=== PATIENT | female | born 1965 | race Caucasian/White ===

== ENCOUNTER 2022-01-19 18:21 | Observation (INO) ==
[2022-01-20] MEDS ORDERED: Naloxone 0.4 MG/ML INJ IVP PRN ×2 (00:55→09:31)
[2022-01-20] MEDS ORDERED: Melatonin 3 MG TABLET PO PRN ×2 (00:55→09:31)
[2022-01-20] MEDS ORDERED: 0.9 % Sodium Chloride 1,000 ML IVC SCH ×3 (01:45→09:31)
[2022-01-20] MEDS: Pantoprazole 40 MG VIAL IVP SCH ×2 (02:38→07:22)
[2022-01-20 02:48] LABS: Basophils % 0.3 %; Eosinophils # 0.1 K/mcL (0.0-0.6); Eosinophils % 0.8 %; Hematocrit 34.1 % (35.3-44.9); Hemoglobin 11.7 g/dL (11.5-15.4); Immature Granulocytes % 0.5 % (0-4); Lymphocytes # 1.8 K/mcL (0.6-4.6); Lymphocytes % 15.2 %; Mean Corpuscular HGB Conc 34.3 g/dL (31.6-35.5); Mean Corpuscular Hemoglobin 30.5 pg (28.0-33.3); Mean Corpuscular Volume 88.8 fL (83.0-100.0); Monocytes # 0.9 K/mcL (0.0-1.3); Monocytes % 7.8 %; Platelet Count 184 K/mcL (140-400); Red Blood Count 3.84 M/mcL (3.82-4.97); Red Cell Distribution Width 13.3 % (11.5-14.5); Segmented Neutrophils % 75.4 %; White Blood Count 11.9 K/mcL (4.3-11.1)
[2022-01-20 02:54] LABS: INR 1.1; Prothrombin Time 12.4 Seconds (9.4-12.1)
[2022-01-20 02:58] LABS: Magnesium 2.2 mg/dL (1.6-2.6); Phosphorous 2.4 mg/dL (2.7-4.5)
[2022-01-20 02:59] LABS: Calcium 8.6 mg/dL (8.6-10.3); Potassium 3.9 mEq/L (3.5-5.1)
[2022-01-20] MEDS ORDERED: *HR* FentaNYL (PF) 100 MCG/2 ML VIAL ONE (07:27)
[2022-01-20] MEDS ORDERED: *HR* Midazolam HCl 2 MG/2 ML VIAL ONE (07:27)
[2022-01-20] MEDS ORDERED: Ondansetron 4 MG/2 ML VIAL ONE (07:27)
[2022-01-20] MEDS ORDERED: *HR* Propofol 200 MG/20 ML VIAL IVP ONE (07:27)
[2022-01-20] MEDS ORDERED: Lidocaine -MPF 2% 5 ML VIAL ONE (07:27)
[2022-01-20] MEDS ORDERED: Ketorolac 30 MG/ML VIAL ONE (07:27)
[2022-01-20] MEDS ORDERED: *HR* HYDROcodone/Acet 7.5/325 mg TABLET PO PRN (07:35)
[2022-01-20] MEDS ORDERED: Ondansetron 4 MG/2 ML VIAL IVP PRN ×2 (07:35→09:31)
[2022-01-20] MEDS ORDERED: *HR* FentaNYL (PF) 100 MCG/2 ML VIAL IVP PRN (07:35)
[2022-01-20] MEDS ORDERED: Ringers Solution, Lactated 1,000 ML ONE (08:43)
[2022-01-20] MEDS ORDERED: cefTRIAXone 1,000 MG in 0.9 % Sodium Chloride 10 ML IVP SCH (09:00)
[2022-01-20] MEDS: cefTRIAXone 1,000 MG in 0.9 % Sodium Chloride 10 ML IVP SCH (11:02)
[2022-01-20 11:32] LABS: Bacteria,Urine Few per hpf (None-Few); Bilirubin,Urine Negative (Negative); Blood,Urine Large (Negative); Clarity,Urine Turbid (Clear); Color,Urine Yellow (Yellow); Glucose,Urine (UA) Normal (Normal); Ketones,Urine 20 mg/dL (Negative); Leukocyte Esterase,Urine Large (Negative); Nitrite,Urine Negative (Negative); PH,Urine 6.5 pH Units (5.0-8.0); Protein,Urine Trace mg/dL (Neg-Trace); Specific Gravity,Urine 1.009 (1.010-1.025); WBC,Urine TNTC per hpf (0-3)
[2022-01-20] MEDS: *HR* Heparin 5,000 UNIT/ML VIAL SQ SCH (17:59)
[2022-01-21 01:19] LABS: Basophils % 0.1 %; Hematocrit 30.8 % (35.3-44.9); Hemoglobin 10.5 g/dL (11.5-15.4); Immature Granulocytes % 0.7 % (0-4); Lymphocytes % 13.5 %; Mean Corpuscular HGB Conc 34.1 g/dL (31.6-35.5); Mean Corpuscular Hemoglobin 30.3 pg (28.0-33.3); Monocytes % 5.8 %; Platelet Count 201 K/mcL (140-400); Red Blood Count 3.46 M/mcL (3.82-4.97); Red Cell Distribution Width 13.2 % (11.5-14.5); Segmented Neutrophils % 79.9 %
[2022-01-21 01:20] LABS: Lymphocytes # 1.6 K/mcL (0.6-4.6); Monocytes # 0.7 K/mcL (0.0-1.3); Neutrophils # 9.6 K/mcL (1.6-8.9)
[2022-01-21 01:35] LABS: BUN/Creatinine Ratio 25 (6-26); Blood Urea Nitrogen 27 mg/dL (6-20); Calcium 8.4 mg/dL (8.6-10.3); Carbon Dioxide 21 mEq/L (23-29); Chloride 107 mEq/L (98-107); Glucose 221 mg/dL (70-105); Magnesium 2.2 mg/dL (1.6-2.6); Osmolality,Calculated 292 (280-300); Phosphorous 2.3 mg/dL (2.7-4.5); Potassium 4.1 mEq/L (3.5-5.1); Sodium 135 mEq/L (136-145); eGFR For African Americans > 60 (> 60); eGFR For Non-African Americans 54 (> 60)
[2022-01-21] MEDS: *HR* Heparin 5,000 UNIT/ML VIAL SQ SCH (05:23)
[2022-01-21] MEDS ORDERED: Pantoprazole 40 MG VIAL IVP SCH (09:00)
[2022-01-21] MEDS: cefTRIAXone 1,000 MG in 0.9 % Sodium Chloride 10 ML IVP SCH (09:05)
[2022-01-21 10:00] VITALS: BP 102/62; PULSE 77; TEMP 98.5; O2SAT 96
== END 2022-01-21 11:14 | disposition home or self-care (01) ==
LOC: 3BNU → SUATTDRO 01-20 00:29
PROVIDERS: ADMIT Internal Medicine; ATTEND Internal Medicine